=== PATIENT | female | born 1970 | race Caucasian/White ===

== ENCOUNTER 2020-11-22 08:49 | Emergency (ER) | payer BC, SELFPAY ==
--- NOTE | 2020-11-22 08:53 | ED.URI ---
HPI - URI/Sore Throat General Chief Complaint: Upper Respiratory Infection Stated Complaint: upper respiratory Time Seen by Provider: 11/22/20 08:53 Source: patient and RN notes reviewed History of Present Illness HPI Narrative: Patient is a 50-year-old female who presents the urgent care with complaints of productive cough, congestion and runny nose. Patient states that it started 3 days ago and she has not taken anything [id number] for her symptoms. States that she did have a low-grade fever last night which has since resolved on its own. Patient is a current smoker and denies of any history of COPD. Currently denies of shortness of breath or chest pain. Patient has not had the Covid vaccine and denies of any recent exposure to Covid or strep. No one else in the home has been symptomatic. No other acute complaints. No acute distress noted. Patient read the plan of care. Some parts of this dictation were generated by voice recognition software and may contain typographical and/or grammatical inaccuracies. Related Data Home Medications Medication Instructions Recorded Confirmed folic acid 1 mg PO DAILY 11/22/20 11/22/20 methotrexate sodium 2.5 mg PO DAILY 11/22/20 11/22/20 solifenacin 5 mg PO DAILY 11/22/20 11/22/20 venlafaxine mg PO 11/22/20 Allergies Allergy/AdvReac Type Severity Reaction Status Date / Time No Known Allergies Allergy Verified 11/22/20 09:17 Review of Systems Review of Systems: CONSTITUTIONAL: Denies fever, chills, or sweats. EYES: Denies visual changes, redness, or discharge. ENT: Denies sore throat, or otalgia. Reports of rhinorrhea and intermittent congestion CARDIOVASCULAR: Denies chest pain, palpitations, or edema. RESPIRATORY: Reports a productive cough without dyspnea GASTROINTESTINAL: Denies abdominal pain, nausea, vomiting, or diarrhea. GENITOURINARY: Denies dysuria or hematuria. SKIN: Denies rash or itching. MUSCULOSKELETAL: Denies back pain, joint pain, or myalgia. NEUROLOGIC: Denies headache, numbness, or weakness. All other systems reviewed are negative, except as documented in HPI. PMFSH Comments At the time of my signature, I reviewed and agree with the nursing past medical, surgical, social, and family history. There is no relevant family history pertinent to the patient complaint. Exam Narrative: GENERAL: This is a well-nourished, well-developed patient, in no apparent distress. HEAD: normocephalic, atraumatic. EYES: PERRL. Sclera clear/white. Vision is grossly intact. EARS: External ears normal, auditory canals clear and without drainage, TMs normal without perforation. Hearing grossly intact. NOSE: External nose normal with no obvious nasal discharge, nares without redness, no rhinorrhea. THROAT: Mucous membranes moist, posterior pharynx clear. Moderate postnasal drainage NECK: Neck supple CARDIOVASCULAR: Regular rate and rhythm without murmurs, gallops, or rubs. RESPIRATORY: Inspiratory wheezes throughout SKIN: warm, intact with no suspicious lesions or rash, good texture and turgor. NEURO: awake, alert, and oriented to person, place and time. There were no obvious focal neurologic abnormalities. EXTREMITIES: No clubbing, cyanosis, or edema. Course Vital Signs Vital signs: Vital Signs Temperature 97.1 F L 11/22/20 08:58 Pulse Rate 91 11/22/20 08:58 Respiratory Rate 20 11/22/20 08:58 Blood Pressure 156/76 H 11/22/20 08:58 Pulse Oximetry 95 11/22/20 08:58 Temperature 97.1 F L 11/22/20 08:58 Pulse Rate 91 11/22/20 08:58 Respiratory Rate 20 11/22/20 08:58 Blood Pressure 156/76 H 11/22/20 08:58 Pulse Oximetry 95 11/22/20 08:58 Reviewed-patient is informed that they may have pre-hypertension or hypertension based on a blood pressure reading in the department. I recommend the patient call the primary care provider listed on their discharge instructions or a physician of their choice this week to arrange follow-up for further evaluation
[2020-11-22 08:58] VITALS: BP 156/76; PULSE 91; RESP 20; TEMP 36.2; O2SAT 95
== END 2020-11-22 09:43 | disposition home or self-care (01) ==
PROVIDERS: Emergency Provider Nurse Practitioner Family
DX: J40 Bronchitis, not specified as acute or chronic (principal); Z90.711 Acquired absence of uterus with remaining cervical stump
CPT/HCPCS: 99213; G0463

== ENCOUNTER 2024-04-12 10:04 | Emergency (ER) | payer OTHER, SELFPAY ==
[2024-04-12 10:12] VITALS: BP 121/76; PULSE 91; RESP 20; TEMP 37.9; O2SAT 98
--- NOTE | 2024-04-12 10:25 | ED.URI ---
HPI - URI/Sore Throat General Chief Complaint: Upper Respiratory Infection Stated Complaint: cough/headache Source: patient Mode of arrival: ambulatory Limitations: no limitations History of Present Illness HPI Narrative: 54-year-old female with afib presented for complaint of cough x1 month, and started with severe head pain with coughing for about 2 days. Cough worse when laying down. Endorses nasal drainage causes her to cough up mucous. Has not taken anything for cough or pain. Says it feels like her head will explode when coughing. denies chest pain, sob, wheezing, n/v/d. Related Data Home Medications ?Medication ?Instructions ?Recorded ?Confirmed ?Last Taken ?Type methotrexate sodium 2.5 mg tablet 2.5 mg PO DAILY 11/22/20 11/22/20 Unknown History solifenacin 5 mg tablet 5 mg PO DAILY 11/22/20 11/22/20 Unknown History atorvastatin 40 mg tablet mg 04/12/24 Unknown History budesonide-formoterol HFA 160 inhalation 04/12/24 Unknown History mcg-4.5 mcg/actuation aerosol inhaler (Symbicort) diltiazem HCl 240 mg mg PO 04/12/24 Unknown History capsule,extended release 24 hr furosemide 40 mg tablet mg 04/12/24 Unknown History hydrocodone 10 mg-acetaminophen tablet 04/12/24 Unknown History 325 mg tablet rivaroxaban 20 mg tablet (Xarelto) mg 04/12/24 Unknown History venlafaxine 150 mg mg PO 04/12/24 Unknown History capsule,extended release 24 hr Allergies Allergy/AdvReac Type Severity Reaction Status Date / Time No Known Allergies Allergy Verified 04/12/24 10:15 Review of Systems Review of Systems: per HPI All systems reviewed & are unremarkable except as noted in HPI and below PMFSH Past Medical History Medical History (Updated 04/12/24 @ 10:45 by Duyen Kong APRN) Atrial fibrillation Social History Social History (Updated 04/12/24 @ 10:46 by Duyen Kong APRN) Smoking packs per day: 0.5 Smoking cigarettes per day: 10.0 Smoking status: Current every day smoker Tobacco type: cigarettes Comments At time of signature, I have reviewed and agree with nursing past medical, surgical, social and family history unless otherwise noted. Please see nursing chart for further information. There is no relevant family history pertinent to the presenting complaint Exam Narrative: GENERAL: mildly ill-appearing, in no acute distress. Guarding head. EYES: EOMI. No redness or drainage. Conjunctivae normal. ENT: Mucous membranes pink and moist. No rhinorrhea. TMs normal bilaterally. Throat normal. Uvula midline. NECK: Normal AROM. Supple. CHEST: No respiratory distress. Lungs clear to all hartmann. HEART: Irregular rate and rhythm. SKIN: Warm, dry, no rash. Capillary refill normal. Normal skin turgor. NEURO: Alert and oriented x3. Gait steady. Course Course Emergency Course: Patient is aware of diagnosis, understands and agrees to treatment plan. Anticipatory guidance given. Patient agrees to follow-up as directed and is aware of reasons to seek care at the emergency department. Portions of this record may have been created with voice recognition software Level of Care: Express Care Visit Vital Signs Vital signs: Vital Signs Temperature 100.2 F H 04/12/24 10:12 Pulse Rate 91 04/12/24 10:12 Respiratory Rate 20 04/12/24 10:12 Blood Pressure 121/76 04/12/24 10:12 Pulse Oximetry 98 04/12/24 10:12 Oxygen Delivery Room Air 04/12/24 10:12 Temperature 100.2 F H 04/12/24 10:12 Pulse Rate 91 04/12/24 10:12 Respiratory Rate 20 04/12/24 10:12 Blood Pressure 121/76 04/12/24 10:12 Pulse Oximetry 98 04/12/24 10:12 Oxygen Delivery Room Air 04/12/24 10:12 MDM - URI/Sore Throat MDM Narrative Medical decision making narrative: Discussed physical exam findings.Neg flu and covid. Reviewed RX. Advised supportive measures and signs/symptoms to go to the ER. Pt is appropriate for outpt treatment and f/u. Differential Diagnosis Differential diagnosis: Likely upper respiratory infection, sinusitis, viral infection, bronchitis, influenza, pharyngitis and other Discharge Plan Discharge Clinical Impression: Sinusitis Patient Disposition: Home, Self-Care Condition: Stable Instructions: Antibiotic Form, How to Stop Smoking (ED), Rhinosinusitis (ED) Additional Instructions: flu and COVID negative. take antibiotic as directed Recommendations: Flonase spray and Zyrtec (or Claritin/Andie) over the counter Cough syrup may cause drowsiness; avoid driving or take it at night time. (Coricidin HBP if you have heart conditions) Tylenol 1000mg every 8 hours as needed for pain/fever rest, push fluids, and increase humidity of the air at home with a humidifier. recommend smoking cessation Follow up with your primary care provider in 1 week. Go to the ER for worsening symptoms or concerns. Patient Language: Occitan Prescriptions: New methylprednisolone [Medrol (Taz)] 4 mg tablets,dose pack See Rx Instructions .ROUTE .COMPLEX Qty: 21 0RF Rx Instructions: orally per package directions amoxicillin-pot clavulanate 875-125 mg tablet 1 tablet PO Q12H 7 Days Qty: 14 0RF acetaminophen [Tylenol Extra Strength] 500 mg tablet 1,000 mg PO Q6H PRN (Reason: fever or pain) Qty: 30 0RF No Action methotrexate sodium 2.5 mg tablet 2.5 mg PO DAILY solifenacin 5 mg tablet 5 mg PO DAILY albuterol sulfate 90 mcg/actuation HFA aerosol inhaler 2 puff INHALATION QID PRN (Reason: shortness of breath or wheezing) Qty: 8 0RF furosemide 40 mg tablet atorvastatin 40 mg tablet diltiazem HCl 240 mg capsule,extended release 24hr PO venlafaxine 150 mg capsule,extended release 24hr PO hydrocodone-acetaminophen 10-325 mg tablet budesonide-formoterol [Symbicort] 160-4.5 mcg/actuation HFA aerosol inhaler INHALATION Xarelto 20 mg tablet Follow-up/Referrals: PHYSICIAN NOT ON STAFF,NONSTAFF [Primary Care Provider] -
[2024-04-12 10:41] LABS: EDCOVIDSCREEN Negative (Negative); EDINFLUASCREEN Negative (Negative); EDINFLUBSCREEN Negative (Negative)
[2024-04-12 10:42] VITALS: TEMP 39.2
[2024-04-12] MEDS: ACETAMINOPHEN 500 MG TABLET 1000 MG PO (10:42)
== END 2024-04-12 10:48 | disposition home or self-care (01) ==
PROVIDERS: Emergency Provider Nurse Practitioner Family
DX: J32.9 Chronic sinusitis, unspecified (principal); Z20.822 Contact with and (suspected) exposure to COVID-19; I48.91 Unspecified atrial fibrillation; F17.210 Nicotine dependence, cigarettes, uncomplicated
CPT/HCPCS: 87426; 87804; 99213; A9270; G0463